=== PATIENT | female | born 1960 | race Two or more races ===

== ENCOUNTER 2024-12-26 06:48 | Day surgery (SDC) | payer BC ==
[~2024-12-26] VITALS: Ht 170.2 cm; Wt 55.8 kg
[~2024-12-26 06:48] MED LIST: MAGN400T40 PO
[2024-12-26] MEDS: IODIXANOL 320MG/ML 100ML BTL IV ONE (07:28)
[2024-12-26] MEDS: HEPARIN SODIUM (PORCINE) 5000 UNITS/ML 1ML VIAL ONE (08:24)
[2024-12-26] MEDS: ANGIOMAX 250 MG VIAL IV ONE (08:24)
[2024-12-26] MEDS: VERAPAMIL 2.5MG/ML INJ 2ML VIAL IV ONE (08:24)
[2024-12-26] MEDS: MIDAZOLAM HCL 2MG/2ML 2ml VIAL (1mg/ml) ONE (08:25)
[2024-12-26] MEDS: fentaNYL CITRATE 100 MCG/2 ML VL ONE (08:25)
[2024-12-26] MEDS: SODIUM CHL 0.9% 0 ML ONE (08:25)
[2024-12-26] MEDS: LIDOCAINE 2%HCL (LOCAL ANESTH.) INJ 20ML MDV ONE (08:25)
[2024-12-26] MEDS: NITROGLYCERIN 50MG/250ML 250 ML IV ONE (08:28)
--- NOTE | 2024-12-26 09:28 | DVHOP2 ---
Operative Report Procedures performed: Left heart catheterization and bilateral coronary angiogram Moderate sedation Diagnosis: Nonobstructive coronary artery disease LVEF of 60% with normal EDP Cardiac suggestion for management: Optimized medical therapy Lifestyle and risk factor modifications Findings: LVEF: 60% LVEDP: 10 mm Hg There was no transaortic valve pressure gradient Left main: Left main was coming off the left sinus of Valsalva. It was free of disease. LAD: LAD was coming off the left main. It provided 1st large-sized diagonal. Second diagonal was medium-sized. LAD throughout its course and branches was free of disease. Ramus intermedius: Ramus intermedius was a large-sized vessel which came off t he left main. It had 60% ostial lesion. LCX: LCX was coming off the left main. It provided to large-sized obtuse marginals. LCX throughout its course and branches was free of disease. RCA: RCA was coming off the right sinus of Valsalva. It was a dominant vessel and provided RPDA. RCA throughout its course and branches was free of disease. Presentation: Patient is a 64-year-old female who presented to the office with chest discomfort. Past medical history includes hypertension, hyperlipidemia and syncope. Family history is positive for coronary artery disease (father of [place] at 65 years old) and diabetes mellitus. Echocardiogram of September 2024 revealed ejection fraction of more than 70%. It also revealed trace mitral regurgitation, trace tricuspid regurgitation and right ventricular systolic pressure of less than 35 mm Hg. Treadmill stress test of October 2024 was b orderline abnormal and the patient was sent for cardiac catheterization. Procedure: After obtaining informed consent, the patient was brought to the photographic laboratory supervisor. She was prepped and draped in sterile fashion. Right radial artery was used for access site. 1 mg of Versed and 50 mcg of fentanyl were used for moderate sedation. Using Seldinger technique, the right radial artery was accessed and a 6 Wolof slender sheath was inserted into it. 2.5 mg of verapamil and 100 mcg of nitroglycerin were given as a cocktail into right radial sheath. 3000 units of heparin was given peripherally. A 5 Wolof tiger 4 diagnostic catheter was used to perform left heart catheterization (obtaining pressures and performing left ventriculography) and bilateral coronary sharath ography. There was no indication for any transcatheter revascularization. Total bleeding was less than 10 mL. There was no di ssection/hematoma/perforation. Patient tolerated the procedure with no complication. Right radial artery access site was managed by deploying a TR band. Fluoroscopy: 5.3 minutes contrast: 35 mL of BhupinderipaDOYLE Corona MD Dec 26, 2024 09:28
== END 2024-12-26 11:25 | disposition home or self-care (01) ==
LOC: CATH 06:48
PROVIDERS: ATTEND Internal Medicine Cardiovascular Disease
DX: R07.9 Chest pain, unspecified (principal); I25.9 Chronic ischemic heart disease, unspecified; I25.10 Atherosclerotic heart disease of native coronary artery without angina pectoris; I10 Essential (primary) hypertension; E78.5 Hyperlipidemia, unspecified; Z82.49 Family history of ischemic heart disease and other diseases of the circulatory system; Z83.3 Family history of diabetes mellitus; Z91.010 Allergy to peanuts
CPT/HCPCS: 93458; C1769; C1894; J1644; J2250; J3010; J7030; Q9967; 99152; 99153